=== PATIENT | female | born 1950 | race Caucasian/White ===

== ENCOUNTER → 2022-09-29 | Outpatient (CLI) | payer MEDICARE, OTHER ==
[~2022-09-29] VITALS: Ht 167.6 cm; Wt 77.3 kg
[~2022-09-29] MED LIST: LIDOCAINE 1% INJ 30 ML (XYLOCAINE) VIAL INJ ONE; LIDOCAINE 1% INJ 30 ML (XYLOCAINE) VIAL ONE
--- NOTE | 2022-09-29 12:40 | Diagnostic Imaging Report ---
INDICATION: Left breast calcifications. PROCEDURE: The patient presents for a stereotactic biopsy. The patient was brought to the stereotactic suite and placed in the sitting upright position. The left breast was positioned lateral medial. Imaging of the left breast was performed. The cluster of microcalcifications in the upper outer left breast were stereotactically targeted. The lateral left breast was then prepped and draped in the usual sterile fashion. A small amount of 1% lidocaine was utilized for local anesthesia. An 8-gauge vacuum-assisted needle was advanced from a lateral medial approach and placed per stereotactic coordinates. Additional lidocaine was administered. All images were viewed on a dedicated workstation. A total of 4 core biopsies were obtained utilizing the 8 gauge vacuum-assisted device. A specimen radiograph was then obtained demonstrating numerous calcifications within the samples labeled #2 and 3. A marker clip was then deployed. The needle was removed and hemostasis was obtained using manual compression. The patient tolerated the procedure well. Postprocedure mammogram was obtained. A 2-D CC and MLO mammogram does show a marker clip in the upper outer left breast. There has been removal of numerous calcifications. IMPRESSION: Successful stereotactic biopsy of the cluster of microcalcifications in the upper outer left breast utilizing the vacuum assisted device. Pathology results are currently pending. Dictated by: Dictated on workstation # [id number]
== END ==
LOC: RAD 09:37
PROVIDERS: ATTEND Family Medicine
DX: N63.20 Unspecified lump in the left breast, unspecified quadrant (principal); R92.0 Mammographic microcalcification found on diagnostic imaging of breast
CPT/HCPCS: 19081; A4648